=== PATIENT | female | born 1960 | race Caucasian/White ===

== ENCOUNTER 2024-06-03 09:25 | Emergency (ER) | payer OTHER ==
[~2024-06-03] VITALS: Ht 157.5 cm; Wt 74.2 kg
[2024-06-03] MEDS ORDERED: AMLO1TAB25 PO (09:37)
[2024-06-03] MEDS: TETRACAINE 0.5% OPHTH SOLN 4ML OD ONE (12:10)
[2024-06-03] MEDS: FLUORESCEIN OPHTH 1MG STRIP OD ONE (12:10)
[2024-06-03] MEDS ORDERED: ERYT5OIN25 OD (13:07)
[2024-06-03 13:17] VITALS: BP 156/86; TEMP 96.6; O2SAT 95
[2024-06-03] MEDS: ERYTHROMYCIN OPHTH OINT OD ONE (13:25)
== END 2024-06-03 13:36 | disposition home or self-care (01) ==
LOC: M ED 09:25
DX: H11.31 Conjunctival hemorrhage, right eye (principal); S05.01XA Injury of conjunctiva and corneal abrasion without foreign body, right eye, initial encounter; Y92.9 Unspecified place or not applicable; Y93.9 Activity, unspecified; Y99.9 Unspecified external cause status; F10.10 Alcohol abuse, uncomplicated; Z88.1 Allergy status to other antibiotic agents; Z88.8 Allergy status to other drugs, medicaments and biological substances; Z79.2 Long term (current) use of antibiotics